=== PATIENT | female | born 1975 | race Two or more races ===

== ENCOUNTER 2025-07-06 12:59 | Emergency (ER) | payer MEDICAID, OTHER ==
[~2025-07-06] VITALS: Ht 281.9 cm; Wt 97.5 kg
[2025-07-06 13:04] VITALS: BP 149/96; PULSE 72; RESP 20; TEMP 98.4; O2SAT 98
== END 2025-07-06 14:42 | disposition left against medical advice (07) ==
LOC: ER 12:59
DX: R68.89 Other general symptoms and signs (principal); Z53.21 Procedure and treatment not carried out due to patient leaving prior to being seen by health care provider; V89.2XXA Person injured in unspecified motor-vehicle accident, traffic, initial encounter; Y93.89 Activity, other specified; Y92.89 Other specified places as the place of occurrence of the external cause; Y99.8 Other external cause status